=== PATIENT | male | born 1985 | race Caucasian/White ===

== ENCOUNTER 2019-12-23 11:44 | Emergency (ER) | payer MEDICAID ==
[~2019-12-23] VITALS: Ht 190.5 cm; Wt 125.2 kg
[2019-12-23 11:50] VITALS: Ht 190.5 cm; Wt 125.2 kg
[2019-12-23 12:58] VITALS: BP 136/90
== END 2019-12-23 12:58 | disposition home or self-care (01) ==
LOC: ED 11:44
DX: J06.9 Acute upper respiratory infection, unspecified (principal); I10 Essential (primary) hypertension